=== PATIENT | female | born 1990 | race Caucasian/White ===

== ENCOUNTER 2021-01-02 20:29 | Emergency (ER) | payer BC, OTHER ==
--- OUTSIDE RECORDS SUMMARY | 2021-01-02 20:41 | XMS REPORT | Continuity of Care Document ---
:1990 Author Organization [facility] t Address [address] [place] [address] Care Team Providers Name Role Phone Maris BROWN, Tammy Attending Clinician Problems This patient has no known problems. Allergies, Adverse Reactions, Alerts This patient has no known allergies or adverse reactions. Medications This patient has no known medications. Procedures This patient has no known procedures. Encounters Start End Encounter Admission Attending Care Care Encounter Source Date/Time Date/Time Type Type Clinicians Facility Department ID 2020-10-27 2020-10-27 Refill Maris RUST [id number] 00:00:00 00:00:00 Lokesh Munoz [facility] [id number] [place] [id number] Professio [phone] nal [address] One 2020-01-16 2020-01-16 Telemedici Maris RUST [id number] 07:49:22 15:21:05 ne Visit Lokesh Tammy Faiza [id number] Avis [id number] Professio [phone] nal 044 Building Results This patient has no known results.
[2021-01-03 00:16] LABS: Absolute Lymphocytes (CBC) 2.3 K/uL (0.7-4.9); Basophils % 0.3 % (0-1.3); Hematocrit 37.2 % (36.0-45.0); Lymphocytes % 47.5 % (15.3-44.8); MPV 7.2 fL (7.6-11.3); RBC Red Blood Cell Count 3.91 M/uL (3.86-4.86)
[2021-01-03 00:27] LABS: ALT/SGPT 27 U/L (12-78); AST/SGOT 24 U/L (15-37); Albumin 4.5 g/dL (3.4-5.0); Alkaline Phosphatase 49 U/L (45-117); BUN Blood Urea Nitrogen 8 mg/dL (7-18); Bicarbonate 30 mmol/L (21-32); Bilirubin Direct 0.2 mg/dL (0-0.2); Bilirubin Total 0.7 mg/dL (0.2-1.0); Glucose Level 80 mg/dL (74-106); Magnesium 1.8 mg/dL (1.8-2.4); NT PRO-BNP 34 pg/mL (<125); Potassium 3.1 mmol/L (3.5-5.1); Protein, Total 7.9 g/dL (6.4-8.2); Sodium Level 140 mmol/L (136-145); Troponin (Emerg Dept Use Only) < 0.02 ng/mL (0.0-0.045)
[2021-01-03 00:28] LABS: Protime INR 1.02
[2021-01-03 01:51] LABS: Urine Blood Negative (Negative); Urine Glucose Negative (Negative); Urine Protein Negative (Negative); Urine Specific Gravity <=1.005 (1.005-1.030); Urine pH 5.5 (5.0-7.0)
--- NOTE | 2021-01-03 01:53 | ER ---
Nurse's Notes [facility] Name: Mallory Guillen Age: 30 yrs Sex: Female : 1990 Arrival Date: 01/02/2021 Time: 20:32 Bed 14 Private MD: Diagnosis: Visual Discturbance, Resolved;Chest pain, unspecified Presentation: 01/02 21:26 Chief complaint: Patient states: Right eye dilatated at 1300. Pt stated, "My pupil was kg so big you couldn't see the color. I was seeing double vision and bury." The double vision resolved around 18:30. Pt stated she started having chest pain around 18:00 but stated she thinks the chest pain is probably anxiety. Coronavirus screen: Client denies travel out of the [place] in the last 14 days. At this time, unable to obtain information related to travel outside the [place] At this time, the client does not indicate any symptoms associated with coronavirus-19. Ebola Screen: Patient negative for fever greater than or equal to 101.5 degrees Fahrenheit, and additional compatible Ebola Virus Disease symptoms Patient denies exposure to infectious person. Patient denies travel to an Ebola-affected area in the 21 days before illness onset. Initial Sepsis Screen: Does the patient meet any 2 criteria? No. Patient's initial sepsis screen is negative. Does the patient have a suspected source of infection? No. Patient's initial sepsis screen is negative. Risk Assessment: Do you want to hurt yourself or someone else? Patient reports no desire to harm self or others. Onset of symptoms was January 02, 2021 at 13:00. 21:26 Method Of Arrival: Ambulatory kg 21:26 Acuity: MT 3 kg Triage Assessment: 21:35 General: Appears in no apparent distress. Behavior is calm, cooperative, appropriate kg for age, quiet. Pain: Denies pain. 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 - Social history:: Smoking status: Patient denies any tobacco usage or history of. Screenin:37 Abuse screen: Denies threats or abuse. Denies injuries from another. Nutritional kg screening: No deficits noted. Tuberculosis screening: No symptoms or risk factors identified. Fall Risk None identified. Assessment: 01/03 00:02 General: Appears in no apparent distress. Pain: Denies pain. Pain: Pain does not zb radiate. Pain began today. denies pain. Neuro: Level of Consciousness is awake, alert, obeys commands, Oriented to person, place, time, Sausage Mixer are equal bilaterally Moves all extremities. Full function Gait is steady, Speech is normal, Facial symmetry appears normal, Pupils are dilated, Intact Reports diplopia, blurred vision earlier. not currently . Cardiovascular: Patient's skin is warm and dry. Respiratory: Airway is patent Respiratory effort is even, unlabored, Respiratory pattern is regular, symmetrical. Derm: Skin is intact, is healthy with good turgor. Musculoskeletal: Range of motion: intact in all extremities. 01:22 Reassessment: Patient and/or family updated on plan of care and expected duration. Pain ea level reassessed. Patient is alert, oriented x 3, equal unlabored respirations, skin warm/dry/pink. Patient states feeling better. 01:59 Reassessment: Dr Murcia at bedside for discussion of findings and recommendations pt bb refused D-Dimer test and chooses to leave FULTS. Vital Signs: 01/02 21:26 BP 114 / 82; Pulse 71; Resp 20; Temp 97.7(TE); Pulse Ox 93% on R/A; Weight 47.26 kg kg (M); Height 5 ft. 3 in. (160.02 cm); Pain 0/10; 01/03 01:21 BP 99 / 62; Pulse 78; Resp 16; Pulse Ox 99% ; ea 02:00 BP 124 / 86; Pulse 79; Resp 16 S; Pulse Ox 98% on R/A; bb 01/02 21:26 Body Mass Index 18.46 (47.26 kg, 160.02 cm) kg Visual Acuity: 00:14 Left Eye Visual acuity 20/20, Pupil size 6 mm, Normal, React To Light, Reactive To zb Accomodation; Right Eye Visual acuity 20/20, Pupil size 4 mm, Normal, React To Light, Reactive To Accomodation; Both Eyes Visual acuity 20/20; With Lenses; ED Course: 01/02 20:32 Patient arrived in ED. ds1 21:33 Triage completed. kg 21:35 Arm band placed on right wrist. kg 21:37 Patient has correct armband on for positive identification. kg 23:10 Amber Coffey, KURTIS is Primary Nurse. zb 23:28 Bryan Murcia MD is Attending Physician. [facility] 23:57 Inserted saline lock: Missed attempt(s): 20 gauge in left antecubital area. dh4 01/03 00:03 Patient maintains SpO2 saturation greater than 95% on room air. zb 00:10 XRAY Chest (1 view) In Process Unspecified. EDMS 00:12 CT Head Brain wo Cont In Process Unspecified. EDMS 01:51 Hank Mason MD is Referral Physician. 7 01:51 Arminda Lockett MD is Referral Physician. 7 Administered Medications: 01:40 Drug: Potassium Chloride 40 mEq Route: PO; bb 02:01 Follow up: Response: No adverse reaction bb Outcome: 02:01 Patient left the ED. bb Signatures: Dispatcher [employer] EDND MorrisseyTasha sandoval ds1 Scarlett Bull RN RN bb Brandi Calderon RN Zachariah White ea 4 Bryan Murcia MD MD Amber Locke RN RN zb Graham, Kristen, RN RN kg
--- NOTE | 2021-01-03 01:53 | EDPHYS ---
Physician Documentation [facility] Name: Mallory Guillen Age: 30 yrs Sex: Female : 1990 Arrival Date: 01/02/2021 Time: 20:32 Bed 14 Private MD: ED Physician Bryan Murcia HPI: 01/02 23:35 This 30 yrs old Female presents to ER via Ambulatory with complaints of Chest mh7 Pain, Blurred Vision. 23:35 The patient or guardian reports chest pain that is located primarily in the substernal mh7 area. The pain does not radiate. Associated signs and symptoms: Pertinent positives: Blurred vision, dilated right pupil \T\ 1300, Pertinent negatives: abdominal pain, cough, diaphoresis, dizziness, headache, lower extremity pain, lower extremity swelling, lightheadedness, nausea, near syncope, palpitations, recent travel, shortness of breath, syncope, vomiting. 23:35 The chest pain is described as sharp. Duration: The patient or guardian reports a mh7 single episode, that is now resolved. Modifying factors: The symptoms are alleviated by nothing. the symptoms are aggravated by emotionally stressful situations. Severity of pain: At its worst the pain was moderate today, in the emergency department the pain has resolved and did so while in waiting room. Patient states that she started having blurred vision around 1 PM today while driving. She then noticed that her right pupil was dilated. This lasted until around 6 PM. She reports having an episode of chest pain started around 6 PM. Blurred vision and dilated pupil resolved around 6 PM. She denies any other symptoms or complaints.. 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 - Social history:: Smoking status: Patient denies any tobacco usage or history of. ROS: 23:35 Constitutional: Negative for fever, chills, and weight loss, ENT: Negative for injury, mh7 pain, and discharge, Neck: Negative for injury, pain, and swelling, Respiratory: Negative for shortness of breath, cough, wheezing, and pleuritic chest pain, Abdomen/GI: Negative for abdominal pain, nausea, vomiting, diarrhea, and constipation, Back: Negative for injury and pain, : Negative for injury, bleeding, discharge, and swelling, MS/Extremity: Negative for injury and deformity, Skin: Negative for injury, rash, and discoloration, Neuro: Negative for headache, weakness, numbness, tingling, and seizure, Psych: Negative for depression, anxiety, suicide ideation, homicidal ideation, and hallucinations, Allergy/Immunology: Negative for hives, rash, and allergies, Endocrine: Negative for neck swelling, polydipsia, polyuria, polyphagia, and marked weight changes, Hematologic/Lymphatic: Negative for swollen nodes, abnormal bleeding, and unusual bruising. Exam: 23:35 Constitutional: This is a well developed, well nourished patient who is awake, alert, mh7 and in no acute distress. Head/Face: Normocephalic, atraumatic. Eyes: Pupils equal round and reactive to light, extra-ocular motions intact. Lids and lashes normal. Conjunctiva and sclera are non-icteric and not injected. Cornea within normal limits. Periorbital areas with no swelling, redness, or edema. Neck: Trachea midline, no thyromegaly or masses palpated, and no cervical lymphadenopathy. Supple, full range of motion without nuchal rigidity, or vertebral point tenderness. No Meningismus. Chest/axilla: Normal chest wall appearance and motion. Nontender with no deformity. No lesions are appreciated. Cardiovascular: Regular rate and rhythm with a normal S1 and S2. No gallops, murmurs, or rubs. Normal PMI, no JVD. No pulse deficits. Respiratory: Lungs have equal breath sounds bilaterally, clear to auscultation and percussion. No rales, rhonchi or wheezes noted. No increased work of breathing, no retractions or nasal flaring. Abdomen/GI: Soft, non-tender, with normal bowel sounds. No distension or tympany. No guarding or rebound. No evidence of tenderness throughout. Back: No spinal tenderness. No costovertebral tenderness. Full range of motion. Skin: Warm, dry with normal turgor. Normal color with no rashes, no lesions, and no evidence of cellulitis. MS/ Extremity: Pulses equal, no cyanosis. Neurovascular intact. Full, normal range of motion. Neuro: Awake and alert, GCS 15, oriented to person, place, time, and situation. Cranial nerves II-XII grossly intact. Motor strength 5/5 in all extremities. Sensory grossly intact. Cerebellar exam normal. Normal gait. Vital Signs: 21:26 BP 114 / 82; Pulse 71; Resp 20; Temp 97.7(TE); Pulse Ox 93% on R/A; Weight 47.26 kg kg (M); Height 5 ft. 3 in. (160.02 cm); Pain 0/10; 01/03 01:21 BP 99 / 62; Pulse 78; Resp 16; Pulse Ox 99% ; ea 02:00 BP 124 / 86; Pulse 79; Resp 16 S; Pulse Ox 98% on R/A; bb 01/02 21:26 Body Mass Index 18.46 (47.26 kg, 160.02 cm) kg Visual Acuity: 00:14 Left Eye Visual acuity 20/20, Pupil size 6 mm, Normal, React To Light, Reactive To zb Accomodation; Right Eye Visual acuity 20/20, Pupil size 4 mm, Normal, React To Light, Reactive To Accomodation; Both Eyes Visual acuity 20/20; With Lenses; MDM: 01:49 Differential diagnosis: acute myocardial infarction, acute pericarditis, anxiety, chest mh7 wall pain, costochondritis, myocarditis, pericarditis, pneumonia. HEART Score: History: Slightly Suspicious (0), ECG: Normal (0), Age: < or = 45 years (0), Risk Factors: No Risk Factors Known (0), Troponin: < or = 1 x Normal Limit (0), Total Score = 0. Data reviewed: vital signs, nurses notes, lab test result(s), cardiac enzymes, CBC, electrolytes, EKG, radiologic studies, CT scan, plain films. Data interpreted: Pulse oximetry: on room air is 99 %. Interpretation: normal. Counseling: I had a detailed discussion with the patient and/or guardian regarding: the historical points, exam findings, and any diagnostic results supporting the discharge/admit diagnosis, lab results, radiology results. Refusal of service: The patient/guardian displays adequate decision making capability and despite a detailed discussion of alternatives, benefits, risks, and consequences refuses: all lab tests, MRI. 01:52 Patient medically screened. [facility] 01/02 23:44 Order name: Basic Metabolic Panel [facility] 01/02 23:44 Order name: CBC with Diff; Complete Time: 00:37 [facility] 01/02 23:44 Order name: LFT's; Complete Time: 00:37 [facility] 01/02 23:44 Order name: Magnesium; Complete Time: 00:37 [facility] 01/02 23:44 Order name: NT PRO-BNP; Complete Time: 00:37 [facility] 01/02 23:44 Order name: PT-INR; Complete Time: 00:37 [facility] 01/02 23:44 Order name: Troponin (emerg Dept Use Only); Complete Time: 00:37 [facility] 01/02 23:44 Order name: XRAY Chest (1 view) [facility] 01/02 23:44 Order name: CT Head Brain wo Cont [facility] 01/02 23:44 Order name: Basic Metabolic Panel; Complete Time: 00:37 [facility] 01/03 01:14 Order name: D-Dimer [facility] 01/03 01:51 Order name: Urine Dipstick-Ancillary [facility] 01/03 01:53 Order name: Urine --Ancillary (enter results) [facility] 01/02 23:44 Order name: EKG; Complete Time: 23:44 [facility] 01/02 23:44 Order name: EKG - Nurse/Tech; Complete Time: 23:58 [facility] 01/02 23:44 Order name: IV Saline Lock; Complete Time: 00:01 [facility] 01/02 23:44 Order name: Labs collected and sent; Complete Time: 23:58 [facility] 01/02 23:44 Order name: O2 Per Protocol; Complete Time: 23:58 [facility] 01/02 23:44 Order name: O2 Sat Monitoring; Complete Time: 23:58 [facility] 01/03 01:11 Order name: Urine Dipstick-Ancillary (obtain specimen); Complete Time: 01:51 [facility] 01/03 01:11 Order name: Urine Test (obtain specimen); Complete Time: 01:51 [facility] Administered Medications: 01:40 Drug: Potassium Chloride 40 mEq Route: PO; bb 02:01 Follow up: Response: No adverse reaction bb Disposition Summary: 01/03/21 01:52 Left Against Medical Advice Location: Home [facility] Problem: new [facility] Symptoms: are resolved mh Condition: Stable mh7 Diagnosis - Visual Discturbance, Resolved mh7 - Chest pain, unspecified mh7 Followup: [facility] - With: Private Physician - When: 1 - 2 days - Reason: Worsening of condition, Recheck today's complaints, Continuance of care, Re-evaluation by your physician Followup: [facility] - With: Hank Mason MD - When: 1 - 2 days - Reason: Worsening of condition, Recheck today's complaints Followup: [facility] - With: Arminda Lockett MD - When: 1 - 2 days - Reason: Worsening of condition, Recheck today's complaints Discharge Instructions: - Discharge Summary Sheet [facility] - Blurred Vision, Adult mh7 - Nonspecific Chest Pain, Adult, [id number] mh7 Signatures: Dispatcher [employer] Scarlett Isaac RN RN bb Holmes, Maurice, MD MD [facility] Jannette Lares RN RN kg
[2021-01-03] MEDS ORDERED: POTASSIUM CL SA 10 MEQ TAB PO ONE (01:59)
[2021-01-03 02:02] LABS: Urine Specific Gravity/Preg <1.005 (1.005-1.030)
[2021-01-03 02:10] VITALS: TEMP 97.7
[2021-01-03 02:14] VITALS: BP 124/86; O2SAT 98
--- NOTE | 2021-01-03 04:58 | RAD REPORT ---
EXAM DESCRIPTION: Mark Single View01/03/2021 12:04 am CLINICAL HISTORY: Chest pain COMPARISON: 2012 FINDINGS: The lungs appear clear of acute infiltrate. The heart is normal size IMPRESSION: No acute abnormalities displayed
--- NOTE | 2021-01-03 13:12 | RAD REPORT ---
EXAM DESCRIPTION: CT - Head Brain Wo Cont - 01/03/2021 6:41 am CLINICAL HISTORY: 30 years, Female, VISUAL DISTURBANCES COMPARISON: None. FINDINGS: Multiple transaxial tomograms of the brain were obtained from the base of the skull to the vertex without contrast. 2-D multiplanar reformats and the coronal and sagittal plane were performed and reviewed. This exam was performed according to our departmental dose-optimization protocol, which includes auto mated exposure control, adjustment of the mA and/or kV according to patient size and/or use of iterat sarah reconstruction technique. Brain parenchyma as well as the mello and white matter differentiation demonstrate to be unremarkable. There is no midline shift and/or mass effect. There is no evidence for acute hemorrhage. Lateral v entricles and cisterns displace normal appearance. No intra or extra axial fluid collections were s een. The calvarium is intact with no evidence for fracture. The visualized portions of the paranasal sinuses and orbits demonstrate to be clear. IMPRESSION: No evidence for acute hemorrhage. Unremarkable CT scan of the head without contrast. Electronically signed by: Giacomo Hidalgo MD 01/03/2021 12:21 AM CDT Due to temporary technical issues with the PACS/Fluency reporting system, reports are being signed by the in house radiologists without review as a courtesy to insure prompt reporting. The interpreting radiologist is fully responsible for the content of the report.
== END 2021-01-03 02:01 | disposition left against medical advice (07) ==
LOC: ER 20:29
DX: R07.9 Chest pain, unspecified (principal); F41.9 Anxiety disorder, unspecified
CPT/HCPCS: 36415; 70450; 71045; 80048; 80076; 81003; 81025; 83735; 83880; 84484; 85025; 85379; 85610; 93005; 99284